=== PATIENT | male | born 1965 ===

== ENCOUNTER 2022-10-01 06:52 | Day surgery (SDC) | payer OTHER ==
[2022-10-01] MEDS ORDERED: NA CHLORIDE 0.9% 1,000 ML ONE (07:48)
[2022-10-01] MEDS ORDERED: MIDAZOLAM HCL 2 MG/2 ML INJ ONE (07:54)
[2022-10-01] MEDS ORDERED: LIDOCAINE 1% MPF 30 ML VIAL ONE (07:54)
[2022-10-01] MEDS ORDERED: propofoL 200 MG/20 ML VIAL IV ONE (07:54)
[2022-10-01 13:50] VITALS: BP 117/75; TEMP 97.2; O2SAT 97
== END 2022-10-01 09:48 | disposition home or self-care (01) ==
LOC: OR 06:52
PROVIDERS: ATTEND Internal Medicine Gastroenterology
PROC: 0DB78ZX Excision of Stomach, Pylorus, Via Natural or Artificial Opening Endoscopic, Diagnostic (ICD-10-PCS; 2022-10-01)
PROC: 0DB68ZX Excision of Stomach, Via Natural or Artificial Opening Endoscopic, Diagnostic (ICD-10-PCS; 2022-10-01)
PROC: 0DB48ZX Excision of Esophagogastric Junction, Via Natural or Artificial Opening Endoscopic, Diagnostic (ICD-10-PCS; principal; 2022-10-01 08:30)
DX: K21.00 Gastro-esophageal reflux disease with esophagitis, without bleeding (principal); R10.13 Epigastric pain; R19.5 Other fecal abnormalities; K29.50 Unspecified chronic gastritis without bleeding
CPT/HCPCS: 88312; 82947; 88305; 43239; J2704; J2001; J2250; J7030

== ENCOUNTER 2022-10-03 07:10 | Day surgery (SDC) | payer OTHER ==
[2022-10-03] MEDS: NA CHLORIDE 0.9% 1,000 ML ONE ×2 (07:47→07:48)
[2022-10-03] MEDS ORDERED: propofoL 200 MG/20 ML VIAL IV ONE ×2 (08:55→09:43)
[2022-10-03] MEDS ORDERED: MIDAZOLAM HCL 2 MG/2 ML INJ ONE (08:55)
[2022-10-03] MEDS ORDERED: LIDOCAINE 1% MPF 5 ML VIAL ONE (08:55)
[2022-10-03 10:10] VITALS: TEMP 97
[2022-10-03 10:12] VITALS: BP 105/50; O2SAT 99
== END 2022-10-03 10:32 | disposition home or self-care (01) ==
LOC: OR 07:10
PROVIDERS: ATTEND Internal Medicine Gastroenterology
PROC: 0DBL8ZX Excision of Transverse Colon, Via Natural or Artificial Opening Endoscopic, Diagnostic (ICD-10-PCS; 2022-10-03)
PROC: 0DBN8ZX Excision of Sigmoid Colon, Via Natural or Artificial Opening Endoscopic, Diagnostic (ICD-10-PCS; 2022-10-03)
PROC: 0DBM8ZX Excision of Descending Colon, Via Natural or Artificial Opening Endoscopic, Diagnostic (ICD-10-PCS; principal; 2022-10-03 08:30)
DX: K92.1 Melena (principal); R19.5 Other fecal abnormalities; D12.4 Benign neoplasm of descending colon; D12.3 Benign neoplasm of transverse colon; D12.5 Benign neoplasm of sigmoid colon
CPT/HCPCS: 82947; 88305; J2001; J2250; J2704; J7030